=== PATIENT | female | born 1955 | race Caucasian/White ===

== ENCOUNTER 2018-01-10 05:39 | Inpatient (IN) ==
[2018-01-10 06:45] LABS: Bilirubin,Urine Small (Negative); Blood,Urine Large (Negative); Clarity,Urine Turbid (Clear); Color,Urine Red (Yellow); Glucose,Urine (UA) Normal (Normal); Ketones,Urine Trace mg/dL (Negative); Leukocyte Esterase,Urine Large (Negative); Nitrite,Urine Negative (Negative); Protein,Urine >=300 mg/dL (Neg-Trace); Specific Gravity,Urine 1.026 (1.010-1.025); Urobilinogen,Urine Normal (Normal)
[2018-01-10 06:48] LABS: Bacteria,Urine None Seen per hpf (None-Few); RBC,Urine TNTC per hpf (0-3); Squamous Epithelial Cell,Urine Moderate per lpf (None-Few); WBC,Urine TNTC per hpf (0-3)
--- NOTE | 2018-01-10 07:10 | Emergency Department Note ---
Disposition Clinical Impression: Cystitis Disposition: Admitted As Inpatient Condition: Good Referrals: Franco Payan, [employer] [Primary Care Provider] - Forms: ED Satisfaction Letter Female Urogenital HPI - General Chief complaint: ED Urogenital-Female Stated complaint: can't urinate/vag bleeding Time Seen by Provider: 01/10/18 05:50 Source: patient, family Mode of arrival: private vehicle Limitations: no limitations Nursing Notes Reviewed: Yes Vital Signs Reviewed: Yes - History of Present Illness Pt Subjective Complaint: other ("can't pee") Onset (ago): hour(s) (Since 12:30am) Location: suprapubic, LLQ, RLQ Radiation: non-radiating Severity: now resolved Quality: cramping ("Like contractions") Duration: intermittent, now resolved Improves with: none Worsens with: none Urinary Symptoms: hematuria ("Clots and blood"), difficulty urinating Vaginal discharge: other ("not sure") Sexual activity: no : no Associated symptoms: Reports: abdominal pain. Denies: nausea/vomiting, fever/ chills, headaches, loss of appetite, , rash, seizure, shortness of breath, syncope, weakness - Related Data Home Medications Medication Instructions Recorded Confirmed Levothyroxine [Synthroid] 125 mcg PO DAILY 11/14/17 01/10/18 Simvastatin [Zocor] 40 mg PO HS 11/14/17 01/10/18 hydroCHLOROthiazide 25 mg PO DAILY 11/14/17 01/10/18 [Hydrochlorothiazide] Allergies Allergy/AdvReac Type Severity Reaction Status Date / Time No Known Allergies Allergy Verified 11/14/17 12:26 All systems ED: reviewed and negative except as stated. Review of Systems: As Per HPI Constitutional: Denies: fever, chills, weakness Cardiovascular: Denies: chest pain, palpitations Gastrointestinal: Denies: abdominal pain, nausea, vomiting Genitourinary: Reports: as per HPI, hematuria Musculoskeletal: Denies: back pain, neck pain, joint swelling, arthralgia, myalgia Integumentary: Denies: rash Neurological: Denies: headache, weakness, numbness, paresthesias, confusion, abnormal gait, vertigo Endocrine: Denies: fatigue Hematological/Lymphatic: Denies: easy bleeding, easy bruising, lymphadenopathy Past Medical History - Past Medical History Attestation: Yes The following information was validated with the patient. Source: patient Medical history: Reports: hyperlipidemia, hypertension, thyroid disease Psychiatric history: Reports: no psych history - Social History Smoking Status: Never smoker Smokeless Tobacco Status: No Alcohol use: Reports: none Drug use: Reports: none Physical Exam - General Limitations: no limitations General appearance: alert, in no apparent distress - Head Head exam: atraumatic, normocephalic, normal inspection - Eye Eye exam: Present: normal appearance, PERRL. Absent: scleral icterus, conjunctival injection, periorbital swelling - ENT ENT exam: mucous membranes moist - Neck Neck exam: Present: normal inspection, trachea midline. Absent: meningismus - Chest Chest inspection: Present: normal inspection - Respiratory Respiratory exam: Present: normal lung sounds bilaterally. Absent: respiratory distress - Cardiovascular Cardiovascular exam: Present: regular rate, normal rhythm, normal heart sounds - Abdominal Exam Abdominal exam: Present: soft, tenderness, normal bowel sounds. Absent: distention, guarding, rebound, rigidity, ascites, mass, pulsatile mass Abdominal tenderness: Present: suprapubic, mild - Female Chronic Disease Epidemiologist present during exam: Yes ([facility] Pete) External Exam: Present: normal external exam Speculum Exam: Present: normal speculum exam. Absent: erythema, vaginal discharge, cervical discharge, vaginal bleeding, foreign body, laceration Bimanual Exam: Present: normal bimanual exam - Extremities Exam Extremities exam: Present: normal inspection, full ROM. Absent: pedal edema - Back Exam Back exam: Present: normal inspection. Absent: CVA tenderness (R), CVA tenderness (L) - Neurological Exam Neurological exam: Present: alert, oriented X3, CN II-XII intact, normal gait - Psychiatric Psychiatric exam: Present: normal affect, normal mood - Skin Skin exam: Present: warm, dry, intact, normal color Course Course Narrative: Patient presents from home for evaluation of hematuria that began last night. She states around 12:30 she tried to use the restroom, but was unable to urinate. She passed a small clot and has been up all night having bladder spasms. She has no history of this. No nausea, vomiting, fever or chills. She has had lower abdominal pain. No back pain. She is afebrile, well- appearing with mild abdominal tenderness in the suprapubic area. Labs and CT have been ordered. Case was discussed with Dr. Llanes. He has had face-to- face time with patient and agrees with the assessment and plan. CT shows thickening of the bladder wall. A punctate stone in the left kidney with no [place]. Urinalysis shows too numerous to count whites and reds, but no bacteria. Culture was ordered. Patient received Pyridium which provided symptomatic improvement. She is now able to urinate without difficulty and no longer has gross hematuria. As the patient has unexplained hemorrhagic cystitis. It is recommended that she be admitted. Angulo has been ordered. Patient is agreeable with the plan. Rocephin has been given. - Consultations Consultation #1: Case discussed with urologist, Dr. Cobos. He recommends placement of a Angulo catheter, irrigation of the bladder, admission to the hospital. He is also agreeable with the plan to give Rocephin. Time: 09:38 Vital Signs Temperature 98.0 F 01/10/18 05:42 Pulse Rate 93 01/10/18 05:42 Respiratory Rate 16 01/10/18 05:42 Blood Pressure 156/77 01/10/18 05:42 O2 Sat by Pulse Oximetry 95 01/10/18 05:42 Temperature 98.0 F 01/10/18 05:42 Pulse Rate 66 01/10/18 09:13 Respiratory Rate 14 01/10/18 09:13 Blood Pressure 144/72 01/10/18 09:13 O2 Sat by Pulse Oximetry 93 01/10/18 09:13 Oxygen Delivery Oxygen Delivery Room Air Urogenital-Female - Medical Records Medical records reviewed: Yes I reviewed the patient's medical records. - Lab Data Lab results reviewed: Yes I reviewed the patient's lab results. Lab results narrative: Laboratory Last Values WBC 11.3 K/mcL (4.3-11.1) H 01/10/18 08:02 RBC 4.74 M/mcL (3.82-4.97) 01/10/18 08:02 Hgb 14.4 g/dL (11.5-15.4) 01/10/18 08:02 Hct 41.4 % (35.3-44.9) 01/10/18 08:02 MCV 87.3 fL (83.0-100.0) 01/10/18 08:02 MCH 30.4 pg (28.0-33.3) 01/10/18 08:02 MCHC 34.8 g/dL (31.6-35.5) 01/10/18 08:02 RDW 12.2 % (11.5-14.5) 01/10/18 08:02 Plt Count 215 K/mcL (140-400) 01/10/18 08:02 MPV 10.3 fL (9.4-12.4) 01/10/18 08:02 Immature Gran % 0.3 % (0-4) 01/10/18 08:02 Seg Neutrophils % 79.1 % 01/10/18 08:02 Lymphocytes % 13.2 % 01/10/18 08:02 Monocytes % 6.5 % 01/10/18 08:02 Eosinophils % 0.4 % 01/10/18 08:02 Basophils % 0.5 % 01/10/18 08:02 Neutrophils # 8.9 K/mcL (1.6-8.9) 01/10/18 08:02 Lymphocytes # 1.5 K/mcL (0.6-4.6) 01/10/18 08:02 Monocytes # 0.7 K/mcL (0.0-1.3) 01/10/18 08:02 Eosinophils # 0.1 K/mcL (0.0-0.6) 01/10/18 08:02 Basophils # 0.1 K/mcL (0.0-0.2) 01/10/18 08:02 PT 12.5 Seconds (9.4-12.1) H 01/10/18 08:02 INR 1.1 01/10/18 08:02 Sodium 138 mEq/L (136-145) 01/10/18 08:02 Potassium 3.3 mEq/L (3.5-5.1) L 01/10/18 08:02 Chloride 106 mEq/L (98-107) 01/10/18 08:02 Carbon Dioxide 28 mEq/L (23-29) 01/10/18 08:02 BUN 19 mg/dL (8-23) 01/10/18 08:02 Creatinine 0.64 mg/dL (0.60-1.20) 01/10/18 08:02 Est GFR ( Amer) > 60 (> 60) 01/10/18 08:02 Est GFR (Non-Af Amer) > 60 (> 60) 01/10/18 08:02 BUN/Creatinine Ratio 30 (6-26) H 01/10/18 08:02 Glucose 103 mg/dL (70-105) 01/10/18 08:02 Calculated Osmolality 289 (280-300) 01/10/18 08:02 Calcium 9.4 mg/dL (8.6-10.3) 01/10/18 08:02 Total Bilirubin 0.6 mg/dL (0.3-1.0) 01/10/18 08:02 Direct Bilirubin 0.2 mg/dL (0.0-0.2) 01/10/18 08:02 Indirect Bilirubin 0.4 mg/dL (0.0-1.2) 01/10/18 08:02 AST 16 Units/L (13-39) 01/10/18 08:02 ALT 20 Units/L (7-52) 01/10/18 08:02 Alkaline Phosphatase 69 Units/L (34-104) 01/10/18 08:02 Serum Total Protein 6.3 g/dL (6.4-8.9) L 01/10/18 08:02 Albumin 3.8 g/dL (3.5-5.7) 01/10/18 08:02 Globulin 2.5 g/dL (2.4-3.5) 01/10/18 08:02 Albumin/Globulin Ratio 1.5 (1.1-2.2) 01/10/18 08:02 Urine Color Red (Yellow) A 01/10/18 06:30 Urine Clarity Turbid (Clear) A 01/10/18 06:30 Urine pH 6.0 pH Units (5.0-8.0) 01/10/18 06:30 Ur Specific [place] 1.026 (1.010-1.025) H 01/10/18 06:30 Urine Protein >=300 mg/dL (Neg-Trace) H 01/10/18 06:30 Urine Glucose (UA) Normal mg/dL (Normal) 01/10/18 06:30 Urine Ketones Trace mg/dL (Negative) H 01/10/18 06:30 Urine Blood Large (Negative) H 01/10/18 06:30 Urine Nitrite Negative (Negative) 01/10/18 06:30 Urine Bilirubin Small (Negative) H 01/10/18 06:30 Urine Urobilinogen Normal mg/dL (Normal) 01/10/18 06:30 Ur Leukocyte Esterase Large (Negative) H 01/10/18 06:30 Urine Microscopic RBC TNTC per hpf (0-3) H 01/10/18 06:30 Urine Microscopic WBC TNTC per hpf (0-3) H 01/10/18 06:30 Ur Squamous Epith Cells Moderate per lpf (None-Few) H 01/10/18 06:30 Urine Bacteria None Seen per hpf (None-Few) 01/10/18 06:30 Ur Culture Indicated? YES (NO) A 01/10/18 06:30 Result diagrams: 01/10/18 08:02 01/10/18 08:02 Lab Results 01/10/18 01/10/18 01/10/18 Range/Units 06:30 08:02 08:02 WBC 11.3 H (4.3-11.1) K/mcL RBC 4.74 (3.82-4.97) M/mcL Hgb 14.4 (11.5-15.4) g/dL Hct 41.4 (35.3-44.9) % MCV 87.3 (83.0-100.0) fL MCH 30.4 (28.0-33.3) pg MCHC 34.8 (31.6-35.5) g/dL RDW 12.2 (11.5-14.5) % Plt Count 215 (140-400) K/mcL MPV 10.3 (9.4-12.4) fL Immature Gran % 0.3 (0-4) % Seg Neutrophils % 79.1 % Lymphocytes % 13.2 % Monocytes % 6.5 % Eosinophils % 0.4 % Basophils % 0.5 % Neutrophils # 8.9 (1.6-8.9) K/mcL Lymphocytes # 1.5 (0.6-4.6) K/mcL Monocytes # 0.7 (0.0-1.3) K/mcL Eosinophils # 0.1 (0.0-0.6) K/mcL Basophils # 0.1 (0.0-0.2) K/mcL PT (9.4-12.1) Seconds INR Sodium 138 (136-145) mEq/L Potassium 3.3 L (3.5-5.1) mEq/L Chloride 106 (98-107) mEq/L Carbon Dioxide 28 (23-29) mEq/L BUN 19 (8-23) mg/dL Creatinine 0.64 (0.60-1.20) mg/dL Est GFR ( Amer) > 60 (> 60) Est GFR (Non-Af Amer) > 60 (> 60) BUN/Creatinine Ratio 30 H (6-26) Glucose 103 (70-105) mg/dL Calculated Osmolality 289 (280-300) Calcium 9.4 (8.6-10.3) mg/dL Total Bilirubin 0.6 (0.3-1.0) mg/dL Direct Bilirubin 0.2 (0.0-0.2) mg/dL Indirect Bilirubin 0.4 (0.0-1.2) mg/dL AST 16 (13-39) Units/L ALT 20 (7-52) Units/L Alkaline Phosphatase 69 (34-104) Units/L Serum Total Protein 6.3 L (6.4-8.9) g/dL Albumin 3.8 (3.5-5.7) g/dL Globulin 2.5 (2.4-3.5) g/dL Albumin/Globulin Ratio 1.5 (1.1-2.2) Urine Color Red A (Yellow) Urine Clarity Turbid A (Clear) Urine pH 6.0 (5.0-8.0) pH Units Ur Specific [place] 1.026 H (1.010-1.025) Urine Protein >=300 H (Neg-Trace) mg/dL Urine Glucose (UA) Normal (Normal) mg/dL Urine Ketones Trace H (Negative) mg/dL Urine Blood Large H (Negative) Urine Nitrite Negative (Negative) Urine Bilirubin Small H (Negative) Urine Urobilinogen Normal (Normal) mg/dL Ur Leukocyte Esterase Large H (Negative) Urine Microscopic RBC TNTC H (0-3) per hpf Urine Microscopic WBC TNTC H (0-3) per hpf Ur Squamous Epith Cells Moderate H (None-Few) per lpf Urine Bacteria None Seen (None-Few) per hpf Ur Culture Indicated? YES A (NO) 01/10/18 Range/Units 08:02 WBC (4.3-11.1) K/mcL RBC (3.82-4.97) M/mcL Hgb (11.5-15.4) g/dL Hct (35.3-44.9) % MCV (83.0-100.0) fL MCH (28.0-33.3) pg MCHC (31.6-35.5) g/dL RDW (11.5-14.5) % Plt Count (140-400) K/mcL MPV (9.4-12.4) fL Immature Gran % (0-4) % Seg Neutrophils % % Lymphocytes % % Monocytes % % Eosinophils % % Basophils % % Neutrophils # (1.6-8.9) K/mcL Lymphocytes # (0.6-4.6) K/mcL Monocytes # (0.0-1.3) K/mcL Eosinophils # (0.0-0.6) K/mcL Basophils # (0.0-0.2) K/mcL PT 12.5 H (9.4-12.1) Seconds INR 1.1 Sodium (136-145) mEq/L Potassium (3.5-5.1) mEq/L Chloride (98-107) mEq/L Carbon Dioxide (23-29) mEq/L BUN (8-23) mg/dL Creatinine (0.60-1.20) mg/dL Est GFR ( Amer) (> 60) Est GFR (Non-Af Amer) (> 60) BUN/Creatinine Ratio (6-26) Glucose (70-105) mg/dL Calculated Osmolality (280-300) Calcium (8.6-10.3) mg/dL Total Bilirubin (0.3-1.0) mg/dL Direct Bilirubin (0.0-0.2) mg/dL Indirect Bilirubin (0.0-1.2) mg/dL AST (13-39) Units/L ALT (7-52) Units/L Alkaline Phosphatase (34-104) Units/L Serum Total Protein (6.4-8.9) g/dL Albumin (3.5-5.7) g/dL Globulin (2.4-3.5) g/dL Albumin/Globulin Ratio (1.1-2.2) Urine Color (Yellow) Urine Clarity (Clear) Urine pH (5.0-8.0) pH Units Ur Specific [place] (1.010-1.025) Urine Protein (Neg-Trace) mg/dL Urine Glucose (UA) (Normal) mg/dL Urine Ketones (Negative) mg/dL Urine Blood (Negative) Urine Nitrite (Negative) Urine Bilirubin (Negative) Urine Urobilinogen (Normal) mg/dL Ur Leukocyte Esterase (Negative) Urine Microscopic RBC (0-3) per hpf Urine Microscopic WBC (0-3) per hpf Ur Squamous Epith Cells (None-Few) per lpf Urine Bacteria (None-Few) per hpf Ur Culture Indicated? (NO) - Radiology Data Radiology results reviewed: Yes I reviewed the patient's radiology results. Abdomen/Pelvis CT 01/10/18 06:54 IMPRESSION: Mild bladder wall thickening with injection of the surrounding fat. Recommend correlation with urinalysis Tiny nonobstructing right renal calculi. No hydronephrosis on right or left. Diverticulosis and normal caliber appendix. D/ / Chase Red MD / Chase Red MD Interpreting Provider: Chase Red MD
--- NOTE | 2018-01-10 07:23 | Emergency Department Note ---
Disposition Clinical Impression: Cystitis Disposition: Admitted As Inpatient Condition: Good General Adult HPI - General Chief complaint: ED Urogenital-Female Stated complaint: can't urinate/vag bleeding Time Seen by Provider: 01/10/18 05:50 Source: patient, family Limitations: no limitations - History of Present Illness Pain Scale: 0 - Related Data Home Medications Medication Instructions Recorded Confirmed Levothyroxine [Synthroid] 125 mcg PO DAILY 11/14/17 01/10/18 Simvastatin [Zocor] 40 mg PO HS 11/14/17 01/10/18 hydroCHLOROthiazide 25 mg PO DAILY 11/14/17 01/10/18 [Hydrochlorothiazide] Allergies Allergy/AdvReac Type Severity Reaction Status Date / Time No Known Allergies Allergy Verified 11/14/17 12:26 Past Medical History - Past Medical History Medical history: Reports: hyperlipidemia, hypertension, thyroid disease Psychiatric history: Reports: no psych history - Social History Smoking Status: Never smoker Smokeless Tobacco Status: No Alcohol use: Reports: none Drug use: Reports: none Physical Exam - General Limitations: no limitations General appearance: alert, in no apparent distress Course - Reevaluation(s) Reevaluation #1: Patient seen in conjunction with FIONA Tolentino. Hematuria and abdominal pain since yesterday. Patient with some relief after expelling a blood clot. Abdomen is soft with mild tenderness to the suprapubic region without rebound or guarding and no CVA tenderness. Patient will undergo blood work as well as further CT scan. Urinalysis concerning for hemorrhagic cystitis. Will consult urology. Please see her note for further details and disposition. Vital Signs Temperature 98.0 F 01/10/18 05:42 Pulse Rate 93 01/10/18 05:42 Respiratory Rate 16 01/10/18 05:42 Blood Pressure 156/77 01/10/18 05:42 O2 Sat by Pulse Oximetry 95 01/10/18 05:42 Temperature 98.3 F 01/10/18 19:25 Pulse Rate 78 01/10/18 19:25 Respiratory Rate 16 01/10/18 19:25 Blood Pressure 149/76 01/10/18 19:25 O2 Sat by Pulse Oximetry 94 01/10/18 19:25 Oxygen Delivery Oxygen Delivery Room Air Medical Decision Making - Lab Data Result diagrams: 01/10/18 08:02 01/10/18 08:02 Lab Results 01/10/18 01/10/18 01/10/18 Range/Units 06:30 08:02 08:02 WBC 11.3 H (4.3-11.1) K/mcL RBC 4.74 (3.82-4.97) M/mcL Hgb 14.4 (11.5-15.4) g/dL Hct 41.4 (35.3-44.9) % MCV 87.3 (83.0-100.0) fL MCH 30.4 (28.0-33.3) pg MCHC 34.8 (31.6-35.5) g/dL RDW 12.2 (11.5-14.5) % Plt Count 215 (140-400) K/mcL MPV 10.3 (9.4-12.4) fL Immature Gran % 0.3 (0-4) % Seg Neutrophils % 79.1 % Lymphocytes % 13.2 % Monocytes % 6.5 % Eosinophils % 0.4 % Basophils % 0.5 % Neutrophils # 8.9 (1.6-8.9) K/mcL Lymphocytes # 1.5 (0.6-4.6) K/mcL Monocytes # 0.7 (0.0-1.3) K/mcL Eosinophils # 0.1 (0.0-0.6) K/mcL Basophils # 0.1 (0.0-0.2) K/mcL PT (9.4-12.1) Seconds INR Sodium 138 (136-145) mEq/L Potassium 3.3 L (3.5-5.1) mEq/L Chloride 106 (98-107) mEq/L Carbon Dioxide 28 (23-29) mEq/L BUN 19 (8-23) mg/dL Creatinine 0.64 (0.60-1.20) mg/dL Est GFR ( Amer) > 60 (> 60) Est GFR (Non-Af Amer) > 60 (> 60) BUN/Creatinine Ratio 30 H (6-26) Glucose 103 (70-105) mg/dL Calculated Osmolality 289 (280-300) Calcium 9.4 (8.6-10.3) mg/dL Total Bilirubin 0.6 (0.3-1.0) mg/dL Direct Bilirubin 0.2 (0.0-0.2) mg/dL Indirect Bilirubin 0.4 (0.0-1.2) mg/dL AST 16 (13-39) Units/L ALT 20 (7-52) Units/L Alkaline Phosphatase 69 (34-104) Units/L Serum Total Protein 6.3 L (6.4-8.9) g/dL Albumin 3.8 (3.5-5.7) g/dL Globulin 2.5 (2.4-3.5) g/dL Albumin/Globulin Ratio 1.5 (1.1-2.2) Urine Color Red A (Yellow) Urine Clarity Turbid A (Clear) Urine pH 6.0 (5.0-8.0) pH Units Ur Specific [place] 1.026 H (1.010-1.025) Urine Protein >=300 H (Neg-Trace) mg/dL Urine Glucose (UA) Normal (Normal) mg/dL Urine Ketones Trace H (Negative) mg/dL Urine Blood Large H (Negative) Urine Nitrite Negative (Negative) Urine Bilirubin Small H (Negative) Urine Urobilinogen Normal (Normal) mg/dL Ur Leukocyte Esterase Large H (Negative) Urine Microscopic RBC TNTC H (0-3) per hpf Urine Microscopic WBC TNTC H (0-3) per hpf Ur Squamous Epith Cells Moderate H (None-Few) per lpf Urine Bacteria None Seen (None-Few) per hpf Ur Culture Indicated? YES A (NO) 01/10/18 Range/Units 08:02 WBC (4.3-11.1) K/mcL RBC (3.82-4.97) M/mcL Hgb (11.5-15.4) g/dL Hct (35.3-44.9) % MCV (83.0-100.0) fL MCH (28.0-33.3) pg MCHC (31.6-35.5) g/dL RDW (11.5-14.5) % Plt Count (140-400) K/mcL MPV (9.4-12.4) fL Immature Gran % (0-4) % Seg Neutrophils % % Lymphocytes % % Monocytes % % Eosinophils % % Basophils % % Neutrophils # (1.6-8.9) K/mcL Lymphocytes # (0.6-4.6) K/mcL Monocytes # (0.0-1.3) K/mcL Eosinophils # (0.0-0.6) K/mcL Basophils # (0.0-0.2) K/mcL PT 12.5 H (9.4-12.1) Seconds INR 1.1 Sodium (136-145) mEq/L Potassium (3.5-5.1) mEq/L Chloride (98-107) mEq/L Carbon Dioxide (23-29) mEq/L BUN (8-23) mg/dL Creatinine (0.60-1.20) mg/dL Est GFR ( Amer) (> 60) Est GFR (Non-Af Amer) (> 60) BUN/Creatinine Ratio (6-26) Glucose (70-105) mg/dL Calculated Osmolality (280-300) Calcium (8.6-10.3) mg/dL Total Bilirubin (0.3-1.0) mg/dL Direct Bilirubin (0.0-0.2) mg/dL Indirect Bilirubin (0.0-1.2) mg/dL AST (13-39) Units/L ALT (7-52) Units/L Alkaline Phosphatase (34-104) Units/L Serum Total Protein (6.4-8.9) g/dL Albumin (3.5-5.7) g/dL Globulin (2.4-3.5) g/dL Albumin/Globulin Ratio (1.1-2.2) Urine Color (Yellow) Urine Clarity (Clear) Urine pH (5.0-8.0) pH Units Ur Specific [place] (1.010-1.025) Urine Protein (Neg-Trace) mg/dL Urine Glucose (UA) (Normal) mg/dL Urine Ketones (Negative) mg/dL Urine Blood (Negative) Urine Nitrite (Negative) Urine Bilirubin (Negative) Urine Urobilinogen (Normal) mg/dL Ur Leukocyte Esterase (Negative) Urine Microscopic RBC (0-3) per hpf Urine Microscopic WBC (0-3) per hpf Ur Squamous Epith Cells (None-Few) per lpf Urine Bacteria (None-Few) per hpf Ur Culture Indicated? (NO)
[2018-01-10 08:14] LABS: Basophils # 0.1 K/mcL (0.0-0.2); Basophils % 0.5 %; Eosinophils # 0.1 K/mcL (0.0-0.6); Eosinophils % 0.4 %; Hematocrit 41.4 % (35.3-44.9); Hemoglobin 14.4 g/dL (11.5-15.4); Immature Granulocytes % 0.3 % (0-4); Lymphocytes # 1.5 K/mcL (0.6-4.6); Lymphocytes % 13.2 %; Mean Corpuscular HGB Conc 34.8 g/dL (31.6-35.5); Mean Corpuscular Hemoglobin 30.4 pg (28.0-33.3); Mean Corpuscular Volume 87.3 fL (83.0-100.0); Mean Platelet Volume 10.3 fL (9.4-12.4); Monocytes # 0.7 K/mcL (0.0-1.3); Monocytes % 6.5 %; Neutrophils # 8.9 K/mcL (1.6-8.9); Platelet Count 215 K/mcL (140-400); Red Blood Count 4.74 M/mcL (3.82-4.97); Red Cell Distribution Width 12.2 % (11.5-14.5); Segmented Neutrophils % 79.1 %
[2018-01-10 08:35] LABS: Alanine Aminotransferase 20 Units/L (7-52); Albumin 3.8 g/dL (3.5-5.7); Albumin/Globulin Ratio 1.5 (1.1-2.2); Alkaline Phosphatase 69 Units/L (34-104); Aspartate Amino Transferase 16 Units/L (13-39); BUN/Creatinine Ratio 30 (6-26); Bilirubin,Direct 0.2 mg/dL (0.0-0.2); Bilirubin,Indirect 0.4 mg/dL (0.0-1.2); Bilirubin,Total 0.6 mg/dL (0.3-1.0); Blood Urea Nitrogen 19 mg/dL (8-23); Calcium 9.4 mg/dL (8.6-10.3); Carbon Dioxide 28 mEq/L (23-29); Chloride 106 mEq/L (98-107); Globulin 2.5 g/dL (2.4-3.5); Glucose 103 mg/dL (70-105); Osmolality,Calculated 289 (280-300); Potassium 3.3 mEq/L (3.5-5.1); Sodium 138 mEq/L (136-145); Total Protein 6.3 g/dL (6.4-8.9); eGFR For African Americans > 60 (> 60); eGFR For Non-African Americans > 60 (> 60)
[2018-01-10 08:42] LABS: INR 1.1; Prothrombin Time 12.5 Seconds (9.4-12.1)
[2018-01-10] MEDS ORDERED: CefTRIAXone 1,000 MG VIAL IM ONE (09:14)
[2018-01-10] MEDS ORDERED: 0.9 % Sodium Chloride 1,000 ML IVC ONE (09:52)
[2018-01-10] MEDS ORDERED: Naloxone 0.4 MG/ML INJ IVP PRN (09:55)
--- NOTE | 2018-01-10 10:33 | Urology - Consult Note ---
Date of Encounter: 01/10/18 Time of Encounter: 10:31 - Assessment and Plan (1) Gross hematuria Current Visit: Yes Status: Acute Assessment and plan: 63-year-old woman with concern for gross hematuria. I placed a 22-Setswana Angulo catheter and her bladder irrigated clear. We will monitor her urine color at this time. Continue catheter overnight. (2) Nephrolithiasis Current Visit: Yes Status: Acute Assessment and plan: She has punctate right renal stones. No surgical intervention is necessary at this time. (3) Cystitis Current Visit: Yes Status: Acute Assessment and plan: She likely has a urinary tract infection leading to hemorrhage. Continue IV antibiotic. Avoid blood thinners at this time. Await results of urine culture. If her urine remains clear tomorrow, we can remove her catheter and possibly discharge home depending upon how she is doing. I answered all of her questions as well as her 's questions. Urology CN:HPI Consult date: 01/10/18 Reason for consult Urology: Gross Hematuria Requesting physician: Mavis Tolentino History of present illness: 63-year-old woman presents with concern for gross hematuria. Earlier this morning she had trouble urinating and had to strain. A clot came out. She reports that she was staining her underwear and nightgown. The urine appeared to be consistent with tomato soup or a ketchup color. She has never had bleeding like this before. She reports a history of smoking in the past. She came to the emergency department. A CT scan was obtained. There was no large clot in the bladder. The CAT scan showed possible right punctate renal stones. The bladder wall appeared thickened. The place a catheter at the bedside. She had been given Pyridium. The urine which returned was a clear orange color. I irrigated the catheter and there was no clot. She elects to be admitted for observation overnight. IV antibiotic has been started. Past Med Surg Social Fam HX - Past Medical History Medical history: hyperlipidemia, hypertension, thyroid disease Psychiatric history: no psych history - Past Surgical History Additional surgical history: tubal - Social History Smoking Status: Never smoker Smokeless Tobacco Status: No Alcohol use: none Drug use: none - Family History Mother Hx Family Reproductive Disorders: Yes (Ovarian Ca) Medications and Allergies Levothyroxine [Synthroid] 125 mcg PO DAILY 11/14/17 [History] Simvastatin [Zocor] 40 mg PO HS 05/12/18 [History] hydroCHLOROthiazide [Hydrochlorothiazide] 25 mg PO DAILY 11/14/17 [History] 3 Allergy/AdvReac Type Severity Reaction Status Date / Time No Known Allergies Allergy Verified 11/14/17 12:26 Review of Systems - Constitutional no chills, no fever(s) - EENT Nose, mouth and throat: no dizziness - Cardiovascular no chest pain - Respiratory no dyspnea - Gastrointestinal no nausea, no vomiting - Genitourinary Genitourinary: difficulty urinating, hematuria, no flank pain - Musculoskeletal no back pain - Integumentary no erythema, no rash - Neurological no weakness - Psychiatric no suicidal ideation - Hematologic/Lymphatic no easy bleeding - Allergic/Immunologic no wheezing Exam Initial Vital Signs Temp Pulse Resp BP Pulse Ox 98.0 F 93 16 156/77 95 01/10/18 05:42 01/10/18 05:42 01/10/18 05:42 01/10/18 05:42 01/10/18 05:42 - General physical appearance Present: well developed, well nourished, no distress - Eyes Absent: icteric - ENT Present: normal nares - Neck Present: trachea midline - Respiratory Present: normal respiratory effort - Cardiovascular Cardiovascular exam IM: RRR - Abdomen Abdomen: Present: soft, non tender - Genitourinary Present: normal external genitalia - Integumentary Present: no rash - Neurologic Present: normal coordination - Musculoskeletal Present: normal gait Urology Results - Labs 01/10/18 08:02 01/10/18 08:02 Abnormal lab results WBC 11.3 K/mcL (4.3-11.1) H 01/10/18 08:02 PT 12.5 Seconds (9.4-12.1) H 01/10/18 08:02 Potassium 3.3 mEq/L (3.5-5.1) L 01/10/18 08:02 BUN/Creatinine Ratio 30 (6-26) H 01/10/18 08:02 Serum Total Protein 6.3 g/dL (6.4-8.9) L 01/10/18 08:02 Urine Color Red (Yellow) A 01/10/18 06:30 Urine Clarity Turbid (Clear) A 01/10/18 06:30 Ur Specific [place] 1.026 (1.010-1.025) H 01/10/18 06:30 Urine Protein >=300 mg/dL (Neg-Trace) H 01/10/18 06:30 Urine Ketones Trace mg/dL (Negative) H 01/10/18 06:30 Urine Blood Large (Negative) H 01/10/18 06:30 Urine Bilirubin Small (Negative) H 01/10/18 06:30 Ur Leukocyte Esterase Large (Negative) H 01/10/18 06:30 Urine Microscopic RBC TNTC per hpf (0-3) H 01/10/18 06:30 Urine Microscopic WBC TNTC per hpf (0-3) H 01/10/18 06:30 Ur Squamous Epith Cells Moderate per lpf (None-Few) H 01/10/18 06:30 Ur Culture Indicated? YES (NO) A 01/10/18 06:30 All other labs normal. - Imaging CT scan - abdomen: report reviewed, image reviewed CT scan - pelvis: report reviewed, image reviewed Consult Discharge Plan - Plan Referrals: Franco Payan, [employer] [Primary Care Provider] -
--- NOTE | 2018-01-10 10:38 | Internal Med History&Physical ---
Date of Encounter: 01/10/18 Time of Encounter: 10:00 Internal Medicine - H&P: HPI Chief complaint: Bladder spasm, and blood clots in urine History of present illness: Ms. David is a 63 year old female with pmh of hypertension, dyslipidemia, hypothyroidism presenting with complaints of suprapubic abdominal pain and passing blood clots in her urine since last night. Patient says she was in her usual state of health when she woke up to urinate at about 12.30am. She then said she having pressure like suprapubic pain that came in spasms, and she noticed she had urgency but wasn't able to urinate. After a while, blood clots started comingout of her urethra and they started getting thicker. She admits to fevers and chills, denies any nausea and vomiting. She had a CCT scan done in the ER showing bladder wall thickening. Urology was consulted in the ER who recommended a [address] crespo catheter and continuous irrigation Past Med Surg Social Fam HX - Past Medical History Medical history: hyperlipidemia, hypertension, thyroid disease Psychiatric history: no psych history - Past Surgical History Additional surgical history: tubal - Social History Smoking Status: Never smoker Smokeless Tobacco Status: No Alcohol use: none Drug use: none - Family History Mother Hx Family Reproductive Disorders: Yes (Ovarian Ca) Internal Medicine - H&P: Meds Levothyroxine [Synthroid] 125 mcg PO DAILY 11/14/17 [History] Simvastatin [Zocor] 40 mg PO HS 11/14/17 [History] hydroCHLOROthiazide [Hydrochlorothiazide] 25 mg PO DAILY 11/14/17 [History] 3 Allergy/AdvReac Type Severity Reaction Status Date / Time No Known Allergies Allergy Verified 11/14/17 12:26 All Systems PM: A 10-system review of systems was performed and is negative for pertinent findings except as documented above in the HPI. - Constitutional Constitutional: no chills, no fever(s), no night sweats - EENT Eyes: no change in vision, no discharge, no pain, no photophobia Ears: no ear discharge, no ear pain, no tinnitus Nose, mouth and throat: no dysphagia, no nasal discharge, no neck pain, no sore throat - Cardiovascular Cardiovascular ROS IM: no chest pain, no diaphoresis, no dyspnea, no lightheadedness, no palpitations, no syncope - Respiratory Respiratory: no cough, no dyspnea, no wheezing, no excessive phlegm production - Gastrointestinal Gastrointestinal: abdominal pain, no diarrhea, no hematemesis, no hematochezia, no melena, no nausea, no vomiting - Genitourinary Genitourinary: difficulty urinating, dysuria, urinary urgency, no change in urinary stream, no flank pain, no hematuria Additional comments: hematuria - Musculoskeletal Musculoskeletal ROS IM: no numbness, no tingling - Integumentary Integumentary IM: no rash, no unusual bruising - Neurological Neurological ROS: no confusion, no convulsions, no focal weakness, no numbness, no tingling, no tremor(s) - Hematologic/Lymphatic Hematologic/Lymphatic: no easy bruising - Constitutional Vitals: Temp Pulse Resp BP Pulse Ox 98.0 F 66 14 144/72 93 01/10/18 05:42 01/10/18 09:13 01/10/18 09:13 01/10/18 09:13 01/10/18 09:13 - Head Head exam: Present: atraumatic, normocephalic - Eye Eye exam: Present: PERRL, conjuntiva pink, sclera anicteric Pupils: Present: PERRL - Neck Neck exam general surgery: Present: supple, trachea midline. Absent: lymphadenopathy - Respiratory Respiratory exam: Present: CTAB. Absent: accessory muscle use, rales, rhonchi, wheezes - Cardiovascular Cardiovascular exam: Present: RRR, +S1, +S2. Absent: diastolic murmur, gallop, rubs, systolic murmur - GI/Abdominal GI/Abdominal exam: Present: normal bowel sounds, soft, no peritoneal signs. Absent: distended, tenderness - Extremities Exam Extremities exam: Present: warm, radial pulses palpable and symmetrical. Absent : calf tenderness, cyanotic, pedal edema - Neurological Exam Neurological exam: Present: CN II-XII intact, oriented X3, no focal deficits. Absent: pronater drift, facial droop, speech deficit - Skin Skin exam: Present: dry, intact Internal Med - H&P Results - Labs CBC & Chem 7: 01/10/18 08:02 01/10/18 08:02 - Assessment and plan (1) Gross hematuria Current Visit: Yes Status: Acute Assessment and plan: Seen by urology. Insert [address] crespo catheter for bladder irrigation. Start on ceftriaxone, obtain urine cultures. Possible cystoscopy in am (2) Urinary tract infection Current Visit: Yes Status: Acute Assessment and plan: On ceftriaxone Qualifiers: Urinary tract infection type: acute cystitis Hematuria presence: with hematuria Qualified Code(s): N30.01 - Acute cystitis with hematuria (3) Hypertension Current Visit: Yes Status: Acute Assessment and plan: Continue HCTZ Qualifiers: Hypertension type: essential hypertension Qualified Code(s): I10 - Essential (primary) hypertension (4) Hypothyroidism Current Visit: Yes Status: Acute Assessment and plan: On levothyroxine Qualifiers: Qualified Code(s): E03.9 - Hypothyroidism, unspecified (5) DVT prophylaxis Current Visit: Yes Status: Acute Assessment and plan: SCDs (6) Nephrolithiasis Current Visit: Yes Status: Acute Assessment and plan: Seen by urology. No acute surgical intervention - Time Spent With Patient Total time spent is greater than 50% in coordination of care (as documented) at patient's floor/unit and/or counseling patient:
[2018-01-10] MEDS: 0.9 % Sodium Chloride 1,000 ML IVC SCH ×2 (13:07→23:07)
[2018-01-10] MEDS ORDERED: traMADol 50 MG TABLET PO PRN (14:48)
[2018-01-11 05:40] LABS: Basophils % 0.6 %; Eosinophils # 0.1 K/mcL (0.0-0.6); Eosinophils % 1.6 %; Hematocrit 40.1 % (35.3-44.9); Hemoglobin 13.5 g/dL (11.5-15.4); Immature Granulocytes % 0.2 % (0-4); Lymphocytes # 2.1 K/mcL (0.6-4.6); Lymphocytes % 32.9 %; Mean Corpuscular HGB Conc 33.7 g/dL (31.6-35.5); Mean Corpuscular Hemoglobin 29.9 pg (28.0-33.3); Mean Corpuscular Volume 88.7 fL (83.0-100.0); Mean Platelet Volume 10.7 fL (9.4-12.4); Monocytes # 0.5 K/mcL (0.0-1.3); Monocytes % 7.6 %; Neutrophils # 3.6 K/mcL (1.6-8.9); Platelet Count 188 K/mcL (140-400); Red Blood Count 4.52 M/mcL (3.82-4.97); Red Cell Distribution Width 12.2 % (11.5-14.5); Segmented Neutrophils % 57.1 %
[2018-01-11 05:54] LABS: BUN/Creatinine Ratio 20 (6-26); Blood Urea Nitrogen 11 mg/dL (8-23); Calcium 8.7 mg/dL (8.6-10.3); Carbon Dioxide 24 mEq/L (23-29); Chloride 110 mEq/L (98-107); Glucose 88 mg/dL (70-105); Magnesium 1.7 mg/dL (1.6-2.6); Osmolality,Calculated 287 (280-300); Potassium 3.7 mEq/L (3.5-5.1); Sodium 139 mEq/L (136-145); eGFR For African Americans > 60 (> 60); eGFR For Non-African Americans > 60 (> 60)
--- NOTE | 2018-01-11 07:30 | Urology Progress Note ---
Date of Encounter: 01/11/18 Time of Encounter: 07:26 - Assessment and Plan (1) Gross hematuria Current Visit: Yes Status: Acute Assessment and plan: Resolved today. D/c Angulo. She can follow up in the clinic for a cystoscopy. (2) Nephrolithiasis Current Visit: Yes Status: Acute (3) Cystitis Current Visit: Yes Status: Acute Progress Note Narrative: Doing well. Urine is clear. Angulo draining well. Objective Initial Vital Signs Temp Pulse Resp BP Pulse Ox 98.0 F 93 16 156/77 95 01/10/18 05:42 01/10/18 05:42 01/10/18 05:42 01/10/18 05:42 01/10/18 05:42 - General physical appearance Present: well developed, well nourished, no distress - Respiratory Absent: normal respiratory effort - Abdomen Present: soft - Genitourinary Urine Appearance: Present: Clear - Labs 01/11/18 04:35 01/11/18 04:35 Diabetes panel 01/11/18 Range/Units 04:35 Sodium 139 (136-145) mEq/L Potassium 3.7 (3.5-5.1) mEq/L Chloride 110 H (98-107) mEq/L Carbon Dioxide 24 (23-29) mEq/L BUN 11 (8-23) mg/dL Creatinine 0.56 L (0.60-1.20) mg/dL Glucose 88 (70-105) mg/dL Calcium 8.7 (8.6-10.3) mg/dL Calcium panel 01/11/18 Range/Units 04:35 Calcium 8.7 (8.6-10.3) mg/dL Phosphorus 3.0 (2.7-4.5) mg/dL Pituitary panel 01/11/18 Range/Units 04:35 Sodium 139 (136-145) mEq/L Potassium 3.7 (3.5-5.1) mEq/L Chloride 110 H (98-107) mEq/L Carbon Dioxide 24 (23-29) mEq/L BUN 11 (8-23) mg/dL Creatinine 0.56 L (0.60-1.20) mg/dL Glucose 88 (70-105) mg/dL Calcium 8.7 (8.6-10.3) mg/dL Adrenal panel 01/11/18 Range/Units 04:35 Sodium 139 (136-145) mEq/L Potassium 3.7 (3.5-5.1) mEq/L Chloride 110 H (98-107) mEq/L Carbon Dioxide 24 (23-29) mEq/L BUN 11 (8-23) mg/dL Creatinine 0.56 L (0.60-1.20) mg/dL Glucose 88 (70-105) mg/dL Calcium 8.7 (8.6-10.3) mg/dL - VTE Documentation of Mechanical Device: Venous foot pump, device Consult Discharge Plan - Plan Referrals: Franco Payan, [facility] [Primary Care Provider] -
[2018-01-11] MEDS ORDERED: cefTRIAXone 1,000 MG in Water for inj. (sterile) 20 ML 10 ML IVP SCH (09:00)
[2018-01-11] MEDS ORDERED: hydroCHLOROthiazide 25 MG TABLET PO SCH (09:00)
[2018-01-11 15:26] VITALS: BP 158/83
--- NOTE | 2018-01-11 18:27 | Discharge Summary ---
Date of Encounter: 01/11/18 Time of Encounter: 18:25 - Discharge Diagnosis (1) Gross hematuria Priority: Primary Status: Acute (2) Nephrolithiasis Priority: Secondary Status: Acute (3) Cystitis Priority: Secondary Status: Acute (4) Hypertension Priority: Secondary Status: Chronic Qualifiers: Hypertension type: essential hypertension Qualified Code(s): I10 - Essential (primary) hypertension (5) Hypothyroidism Priority: Secondary Status: Chronic Qualifiers: Hypothyroidism type: acquired Qualified Code(s): E03.9 - Hypothyroidism, unspecified Hospital course: Ms. David is a 63 year old female We admitted this patient shortly after she had developed gross hematuria. It was associated with suprapubic abdominal pain; saw some clots in the urine. She had some difficulty voiding. Angulo catheter was inserted. Bladder irrigations were started. Urology was consulted. Imaging studies showed very small right renal stones. Hematuria subsided a few hours after inserting Angulo catheter. It was removed. We did see her having more hematuria, when she was voiding on her own. Condition at discharge: Asymptomatic. Denies abdominal pain, nausea and vomiting. Denies dysuria. She will have outpatient cystoscopy, as recommended by urology. See other discharge orders. Discharge discussed with: patient, family - Time Spent with Patient Total time spent providing and/or coordinating discharge services: Greater than 30 minutes (35 minutes) - Discharge Medications Prescriptions: Cefdinir [Omnicef] 300 mg PO BID #14 capsule Home Medications: Levothyroxine [Synthroid] 125 mcg PO DAILY 11/14/17 [History] Simvastatin [Zocor] 40 mg PO HS 11/14/17 [History] hydroCHLOROthiazide [Hydrochlorothiazide] 25 mg PO DAILY 11/14/17 [History] Cefdinir [Omnicef] 300 mg PO BID #14 capsule 01/11/18 [Rx] Allergies/Adverse Reactions: 3 Allergy/AdvReac Type Severity Reaction Status Date / Time No Known Allergies Allergy Verified 11/14/17 12:26 Date of admission: 01/10/18 10:35 Primary care physician: Franco Payan CNP Consults: Urology. Discharging clinician: Alfredito Watson Anticipated date of discharge: 01/11/18 - Constitutional Vitals: Temp Pulse Resp BP Pulse Ox 98.3 F 67 18 158/83 96 01/11/18 15:23 01/11/18 15:23 01/11/18 15:23 01/11/18 15:23 01/11/18 15:23 General appearance: Present: A&O X 3, no acute distress, answers questions appropriately - Respiratory Respiratory exam: Present: CTAB. Absent: accessory muscle use, rales, rhonchi, wheezes - Cardiovascular Cardiovascular exam: Present: RRR, +S1, +S2. Absent: diastolic murmur, gallop, rubs, systolic murmur - GI/Abdominal GI/Abdominal exam: Present: normal bowel sounds, soft, no peritoneal signs. Absent: distended, tenderness - Patient Status Disposition: Home, Self-Care Condition: Good - Discharge Instructions Instructions: Urinary Tract Infection in Women (DC) Follow Up With: Alfredo Cobos MD [Partnered Physician] - (Web request entered. Office will call with appointment.) Franco Payan CNP [Primary Care Provider] - Additional Instructions: Follow-up with urology - in the next 7 days.. - Diet and Activity Activity: resume usual activities as tolerated - VTE Reasons for not Prescribing Prophylaxis: Treatment not Indicated - Low risk for VTE Documentation of Mechanical Device: Venous foot pump, device Deep Vein Thrombosis/Pulmonary Embolism Present on Admission: No
== END 2018-01-11 20:03 | disposition home or self-care (01) | DRG 463 ==
LOC: 3ANU 05:39 → EMEROO 05:39 → SUATTDRO 10:35 → 3ANU 11:02
PROVIDERS: ADMIT Student in an Organized Health Care Education/Training Program; ATTEND Internal Medicine